=== PATIENT | female | born 1975 | race African-American/Black ===

== ENCOUNTER 2021-01-30 10:37 | Emergency (ER) | payer SELFPAY ==
[~2021-01-30] VITALS: Ht 152.4 cm; Wt 68.0 kg
[~2021-01-30 10:37] MED LIST: HYDR-3164 PO; SULF1TAB24 PO
[2021-01-30 11:45] VITALS: BP 148/82
--- NOTE | 2021-01-30 12:14 | PHYS DOC ---
Past Medical History Past Medical History: Hypertension Additional Past Medical Histor: abscess (JESSICA LIVINGSTON Pratik CRIME DATA SPECIALIST) Past Surgical History: No Surgical History Additional Past Surgical Histo: D&C (JESSICA LIVINGSTON Pratik CRIME DATA SPECIALIST) Smoking Status: Current Every Day Smoker Alcohol Use: Occasionally Drug Use: Marijuana (JESSICA LIVINGSTON Pratik CRIME DATA SPECIALIST) General Adult EDM: Chief Complaint: HEADACHE HPI: HPI: Patient is a 45 year old female with a history of hypertension who presents to the ED today complaining of falling off the toilet. Patient states this morning she was trying to use the toilet and fell head forward. Patient believes she could have passed out. She is complaining of forehead pain and right rib pain. States the pain is mild and intermittent worse on touching those regions. Denies anything relieving the pain. (JESSICA LIVINGSTON Pratik CRIME DATA SPECIALIST) Review of Systems: Review of Systems: Constitutional: Denies fever or chills. [] Eyes: Denies change in visual acuity. [] HENT: Denies nasal congestion or sore throat. [] Respiratory: Reports right rib pain denies cough or shortness of breath. [] Cardiovascular: Denies chest pain or edema. [] GI: Denies abdominal pain, nausea, vomiting, bloody stools or diarrhea. [] : Denies dysuria. [] Musculoskeletal: Denies back pain or joint pain. [] Integument: Denies rash. [] Neurologic: Reports falling and hitting head on the ground, denies focal weakness or sensory changes. [] Psychiatric: Denies depression or anxiety. [] (JESSICA LIVINGSTON CRIME DATA SPECIALIST) Heart Score: C/O Chest Pain: N/A Risk Factors: Risk Factors: DM, Current or recent (<one month) smoker, HTN, HLP, family history of CAD, obesity. Risk Scores: Score 0 - 3: 2.5% MACE over next 6 weeks - Discharge Home Score 4 - 6: 20.3% MACE over next 6 weeks - Admit for Clinical Observation Score 7 - 10: 72.7% MACE over next 6 weeks - Early Invasive Strategies (JESSICA LIVINGSTON CRIME DATA SPECIALIST) Allergies: Allergies: Allergies Coded Allergies Type Severity Reaction Last Updated Verified Penicillins Allergy Intermediate unknown 01/30/21 Yes (JESSICA LIVINGSTON CRIME DATA SPECIALIST) Physical Exam: PE: Constitutional: Well developed, well nourished, no acute distress, non-toxic appearance. [] HENT: Normocephalic, atraumatic, bilateral external ears normal, oropharynx moist, no oral exudates, nose normal. [] Eyes: PERRLA, EOMI, conjunctiva normal, no discharge. [] Neck: Normal range of motion, no tenderness, supple, no stridor. [] Cardiovascular:Heart rate regular rhythm, no murmur [] Lungs & Thorax: Bilateral breath sounds clear to auscultation, tenderness on palpation of the right lateral ribs mid axillary line approximately ribs 8 and 9 Abdomen: Bowel sounds normal, soft, no tenderness, no masses, no pulsatile masses. [] Skin: Warm, dry, no erythema, no rash. [] Back: No tenderness, no CVA tenderness. [] Extremities: No tenderness, no cyanosis, no clubbing, ROM intact, no edema. [] Neurologic: Alert and oriented X 3, normal motor function, normal sensory function, no focal deficits noted. Cranial nerves II through XII intact small contusion noted on the forehead Psychologic: Affect normal, judgement normal, mood normal. [] (JESSICA LIVINGSTON CRIME DATA SPECIALIST) EKG: EKG: [] (JESSICA LIVINGSTON APRN) Radiology/Procedures: Radiology/Procedures: []PROCEDURE: RIBS RIGHT AND PA CHEST Exam Date: 01/30/2021 12:05 PM XR RIBS MIN 3 VIEWS RT W/PA CHEST Indication: Reason: fall pain / Spl. Instructions: / History: . COMPARISON: November 19, 2015 FINDINGS: No acute rib fracture is seen. The mediastinum, cardiac silhouette and pulmonary vasculature are within normal limits. No focal consolidation, effusion or pneumothorax. IMPRESSION: No acute rib fracture identified. No evidence of acute cardiopulmonary disease. Electronically signed by: Jenn Parker MD (01/30/2021 12:24 PM) [id number] DICTATED and SIGNED BY: JENN PARKER MD DATE: 01/30/21 [id number] PROCEDURE: CT HEAD AND CERVICAL SPINE WO RS Compliance Statement: One or more of the following individualized dose reduction techniques were utilized for this examination: 1. Automated exposure control 2. Adjustment of the mA and/or kV according to patient size 3. Use of iterative reconstruction technique CT head and cervical spine without contrast 01/30/2021 12:02 PM INDICATION: Fall COMPARISON: None available TECHNIQUE: Multiple axial CT images of the head were obtained from skull base through the vertex without intravenous contrast. Multiple axial CT images of the cervical spine were obtained without intravenous contrast. Coronal and sagittal reformats are provided. FINDINGS: Head: Ventricles, sulci and basal cisterns are within normal limits. There is no hydrocephalus. Feliz-white matter differentiation is normal. There is no acute intracranial hemorrhage. There is no mass, mass effect or midline shift. Posterior fossa is normal in appearance. Visualized portions of the orbits are normal. Paranasal sinuses are well aerated. Mastoid air cells are well aerated. Scalp and calvaria are normal. Cervical spine: Alignment of the cervical spine is normal. Skull base is intact. Craniocervical junction is normal in appearance. Atlantoaxial articulation is normal. Vertebral body heights are maintained without evidence for acute fracture. There is incomplete fusion of posterior arch of C1. Anterior osteophytosis identified at C7-T1. Facet joints are within normal limits. No significant osseous neural foraminal stenosis. No significant osseous spinal canal stenosis. Transverse foramen are intact. There is no prevertebral soft tissue swelling. Thyroid gland is normal in appearance. Visualized portions of the lung apices are normal without evidence for suspicious pulmonary nodule or infiltrate. IMPRESSION: 1. No acute intracranial hemorrhage. 2. No acute fracture or malalignment of the cervical spine. Electronically signed by: Tori Madsen MD (01/30/2021 12:27 PM) [id number] DICTATED and SIGNED BY: TORI MADSEN MD DATE: 01/30/21 [id number] (JESSICA LIVINGSTON APRN) Course & Med Decision Making: Course & Med Decision Making Pertinent Labs and Imaging studies reviewed. (See chart for details) This is a 45-year-old female patient presenting to the ED today to be evaluated after falling off the toilet today, complaining of forehead contusion and right rib pain. CT of the head and cervical spine are negative, right rib x-rays including PA chest are negative. Discharge to home. Follow-up with PCP in 1 to 2 weeks. (JESSICA LIVINGSTON APRN) Dragon Disclaimer: Dragon Disclaimer: This electronic medical record was generated, in whole or in part, using a voice recognition dictation system. (JESSICA LIVINGSTON CRIME DATA SPECIALIST) Departure Departure Impression: Primary Impression: Fall Qualified Codes: W19.XXXA - Unspecified fall, initial encounter Additional Impressions: Forehead contusion Qualified Codes: S00.83XA - Contusion of other part of head, initial encounter Contusion of rib on right side Qualified Codes: S20.211A - Contusion of right front wall of thorax, initial encounter Disposition: HOME / SELF CARE / HOMELESS Condition: STABLE Referrals: UNKNOWN PCP NAME (PCP) Follow-up in 1 week with your doctor Patient Instructions: Contusion, [id number], Fall Prevention and Home Safety, [id number] Additional Instructions: You had a CT of your head and cervical spine/neck done today they are negative for any acute findings, your chest x-ray is also negative for any rib fractures or any acute findings. We encourage you to apply ice on your forehead. Take [id number] pain relievers specifically Tylenol as needed for pain. Follow-up with your doctor in 1 week Attending Signature Attending Signature I have reviewed the PA/ACTOR UNDERSTUDY's note and plan of care. I was available for consultat ion as needed during the patient's visit in the emergency department. I agree with the clinical impression, plan, and disposition. (CARLYLE DUNNE DO) JESSICA LIVINGSTON APRN Jan 30, 2021 12:14 CARLYLE DUNNE DO Jan 30, 2021 14:51
--- NOTE | 2021-01-30 12:26 | RAD ---
Exam Date: 01/30/2021 12:05 PM XR RIBS MIN 3 VIEWS RT W/PA CHEST Indication: Reason: fall pain / Spl. Instructions: / History: . COMPARISON: November 19, 2015 FINDINGS: No acute rib fracture is seen. The mediastinum, cardiac silhouette and pulmonary vasculature are wit hin normal limits. No focal consolidation, effusion or pneumothorax. IMPRESSION: No acute rib fracture identified. No evidence of acute cardiopulmonary disease. Electronically signed by: Carson Parker MD (01/30/2021 12:24 PM) [id number]
--- NOTE | 2021-01-30 12:29 | RAD ---
PQRS Compliance Statement: One or more of the following individualized dose reduction techniques were utilized for this examinat ion: 1. Automated exposure control 2. Adjustment of the mA and/or kV according to patient size 3. Use of iterative reconstruction technique CT head and cervical spine without contrast 01/30/2021 12:02 PM INDICATION: Fall COMPARISON: None available TECHNIQUE: Multiple axial CT images of the head were obtained from skull base through the vertex with out intravenous contrast. Multiple axial CT images of the cervical spine were obtained without intrav enous contrast. Coronal and sagittal reformats are provided. FINDINGS: Head: Ventricles, sulci and basal cisterns are within normal limits. There is no hydrocephalus. Feliz-white matter differentiation is normal. There is no acute intracranial hemorrhage. There is no mass, mass e ffect or midline shift. Posterior fossa is normal in appearance. Visualized portions of the orbits are normal. Paranasal sinuses are well aerated. Mastoid air cells a re well aerated. Scalp and calvaria are normal. Cervical spine: Alignment of the cervical spine is normal. Skull base is intact. Craniocervical junction is normal in appearance. Atlantoaxial articulation is normal. Vertebral body heights are maintained without evidence for acute fracture. There is incomplete fusion of posterior arch of C1. Anterior osteophytosis identified at C7-T1. Facet joints are within normal limits. No significant osseous neural foraminal stenosis. No significa nt osseous spinal canal stenosis. Transverse foramen are intact. There is no prevertebral soft tissue swelling. Thyroid gland is normal in appearance. Visualized port ions of the lung apices are normal without evidence for suspicious pulmonary nodule or infiltrate. IMPRESSION: 1. No acute intracranial hemorrhage. 2. No acute fracture or malalignment of the cervical spine. Electronically signed by: Elizabet Jean MD (01/30/2021 12:27 PM) [id number]
[2021-01-30 13:26] LABS: BILIRUBIN,URINE NEGATIVE (NEG); CLARITY,URINE CLEAR; COLOR,URINE YELLOW; NITRITE,URINE NEGATIVE (NEG); PH,URINE 5.5 (<5.0-8.0); PROTEIN,URINE 100 mg/dL (NEG-TRACE); UROBILINOGEN,URINE 0.2 mg/dL (0.2 mg/dL)
[2021-01-30 13:34] LABS: BARBITURATES NEG (NEG); BENZODIAZEPINES NEG (NEG); CANNABINOIDS POS (NEG); COCAINE POS (NEG); METHADONE NEG (NEG); OPIATES NEG (NEG); PHENCYCLIDINE NEG (NEG)
[2021-01-30 13:39] LABS: AMPHETAMINE/METHAMPHETAMINE NEG (NEG)
[2021-01-30 13:48] LABS: HYALINE CASTS, URINE MODERATE /HPF
[2021-01-30 13:51] LABS: BACTERIA,URINE 0 /HPF (0-FEW); RBC,URINE 0 /HPF (0-2); TRICHOMONAS,URINE PRESENT; WBC,URINE 20-40 /HPF (0-4)
== END 2021-01-30 13:17 | disposition home or self-care (01) ==
LOC: ER 10:37
DX: S00.83XA Contusion of other part of head, initial encounter (principal); S20.211A Contusion of right front wall of thorax, initial encounter; I10 Essential (primary) hypertension; F17.200 Nicotine dependence, unspecified, uncomplicated; Z88.0 Allergy status to penicillin; W18.11XA Fall from or off toilet without subsequent striking against object, initial encounter; Y93.89 Activity, other specified; Y92.89 Other specified places as the place of occurrence of the external cause; Y99.8 Other external cause status
CPT/HCPCS: 70450; 71101; 72125; 80307; 81001; 87086; 99285-25

== ENCOUNTER 2021-01-31 15:20 | Emergency (ER) | payer SELFPAY ==
[2021-01-30 11:45] VITALS: BP 148/82
== END 2021-01-31 16:45 | disposition left against medical advice (07) ==
LOC: ER 15:20
DX: R10.9 Unspecified abdominal pain (principal); R11.10 Vomiting, unspecified; Z53.21 Procedure and treatment not carried out due to patient leaving prior to being seen by health care provider